=== PATIENT | male | born 1975 | race Caucasian/White ===

== ENCOUNTER 2019-12-28 18:40 | Emergency (ER) | payer SELFPAY ==
--- NOTE | 2019-12-28 19:19 | EDM.PDOC ---
ED HPI GENERAL MEDICAL PROBLEM - General Chief Complaint: Neuro Symptoms/Deficits Stated Complaint: slurred speech confusion Time Seen by Provider: 12/28/19 18:45 Source of Information: Reports: Patient History Limitations: Reports: No Limitations - History of Present Illness INITIAL COMMENTS - FREE TEXT/NARRATIVE: brought in by family , was driving and developed pain behind he right eye , headache and slurred speech , dizziness and felt nauseated, was driving a the time . Stopped driving and family who was with him brought him in , seems to remember most of what happened , no CORTEZ currently , no chest pain , no shortness of breath not aware he is hypertensive Onset: Today Duration: Hour(s): (1) Location: Reports: Head Quality: Reports: Ache Severity: Moderate - Related Data Allergies Allergy/AdvReac Type Severity Reaction Status Date / Time No Known Allergies Allergy Verified 12/28/19 19:07 Home Meds: Home Meds NK [No Known Home Meds] 12/28/19 [History] ED ROS GENERAL - Review of Systems Review Of Systems: See Below Constitutional: Reports: Malaise HEENT: Reports: Eye Pain Respiratory: Reports: No Symptoms Cardiovascular: Reports: No Symptoms Endocrine: Reports: No Symptoms Neurological: Reports: Confusion, Dizziness, Headache, Trouble Speaking. Denies : Change in Speech, Gait Disturbance ED EXAM, NEURO - Physical Exam Exam: See Below Exam Limited By: No Limitations General Appearance: Alert, WD/WN, No Apparent Distress Eye Exam: Bilateral Eye: EOMI Ears: Normal External Exam Nose: Normal Inspection Throat/Mouth: Normal Inspection Neck: Supple, Non-Tender Respiratory/Chest: No Respiratory Distress, Lungs Clear Cardiovascular: Normal Peripheral Pulses, Regular Rate, Rhythm GI/Abdominal: Soft, Non-Tender Neurological: Alert, Normal Mood/Affect, Normal Dorsiflexion, CN II-XII Intact, Oriented x 3 Extremities: Normal Range of Motion Psychiatric: Normal Affect, Normal Mood *Q Meaningful Use (ADM) - VTE *Q VTE Mechanical Contraindications *Q: Confused Consciousness VTE Pharmacological Contraindications *Q: Active Hemorrhage VTE Anticoagulation Contraindications: Med/TX Not Indicated/Need - VTE Risk Assess *Q Each Risk Factor Represents 1 Point: None Total Score 1 Point Risk Factors: 0 - Stroke *Q Aspirin Contraindications Stroke *Q: Other (Use Special Inst) Anticoagulation Contraindications Stroke *Q: Med/TX Not Indicated/Need Antithrombotic Contraindications Stroke *Q: Med/TX Not Indicated/Need Thrombolytic/Fibrinolytic Contraindications Stroke *Q: Med/TX Not Indicated/Need Statin Contraindications Stroke *Q: Med/TX Not Indicated/Need Rehabilitation Assessment Contraindication *Q: Med/tx not indicated/need - AMI *Q Aspirin Contraindications AMI *Q: Med/TX Not Indicated/Need Thrombolytic/Fibrinolytic Contraindications IV (AMI) *Q: Med/tx not indicated/ need Statin Contraindications AMI *Q: Med/TX Not Indicated/Need Course - Vital Signs Last Recorded V/S: Last Vital Signs Temp 36.6 C 12/28/19 18:40 Pulse 74 12/28/19 18:40 Resp 14 12/28/19 18:40 BP 202/121 H 12/28/19 18:40 Pulse Ox 98 12/28/19 18:40 - Orders/Labs/Meds Orders: Active Orders 24 hr Category Date Time Status Chest 2V [CR] Stat Exams 12/28/19 19:07 Ordered Head wo Cont [CT] Stat Exams 12/28/19 19:06 Ordered CBC WITH AUTO DIFF [HEME] Stat Lab 12/28/19 19:08 Ordered COMPREHENSIVE METABOLIC PN,CMP [CHEM] Stat Lab 12/28/19 19:08 Ordered - Re-Assessments/Exams Free Text/Narrative Re-Assessment/Exam: 12/28/19 19:[address] ordered , labs , chest Xray pt signed out to next provider Departure - Departure Time of Disposition: 17:20 Disposition: Home, Self-Care 01 Clinical Impression: Hypertension - Discharge Information *PRESCRIPTION DRUG MONITORING PROGRAM REVIEWED*: Not Applicable *COPY OF PRESCRIPTION DRUG MONITORING REPORT IN PATIENT CHRISTOPHER: Not Applicable Referrals: PCP,None [Primary Care Provider] - Sepsis Event Note - Evaluation Sepsis Screening Result: No Definite Risk - Focused Exam Vital Signs: Vital Signs Temp Pulse Resp BP Pulse Ox 12/28/19 18:40 36.6 C 74 14 202/121 H 98 Date Exam was Performed: 12/28/19 Time Exam was Performed: 19:14 - My Orders Last 24 Hours: My Active Orders 12/28/19 19:06 Head wo Cont [CT] Stat 12/28/19 19:07 Chest 2V [CR] Stat 12/28/19 19:08 CBC WITH AUTO DIFF [HEME] Stat COMPREHENSIVE METABOLIC PN,CMP [CHEM] Stat - Assessment/Plan Last 24 Hours: My Active Orders 12/28/19 19:06 Head wo Cont [CT] Stat 12/28/19 19:07 Chest 2V [CR] Stat 12/28/19 19:08 CBC WITH AUTO DIFF [HEME] Stat COMPREHENSIVE METABOLIC PN,CMP [CHEM] Stat
[2019-12-28] MEDS ORDERED: Sodium Chloride 0.9% 10 ML Syringe FLUSH PRN (19:21)
[2019-12-28] MEDS ORDERED: Enalaprilat 1.25 MG/ML SDV IVPUSH ONE (19:21)
[2019-12-28] MEDS ORDERED: Labetalol 20 MG/4 ML Syringe IVPUSH ONE (19:58)
--- NOTE | 2019-12-28 23:04 | ER ---
DATE SEEN: 12/28/2019 CHIEF COMPLAINT: Hypertension. 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 He seems to have improved upon arrival. He has no previous history of hypertension. CT scan that was done by Dr. Ham looks normal. EKG, CBC, and troponin were also negative. He did not have any symptoms of chest pain or shortness of breath. He did endorse being very tired and working long hours. SOCIAL HISTORY: He is a smoker, but does not use any drugs. MEDICATIONS: None. ALLERGIES: None. PHYSICAL EXAMINATION: VITAL SIGNS: When examined him, blood pressure initially was 189/114, but improved down to 160 systolic over 90s. ENT: Negative. CARDIOVASCULAR: Normal. CHEST: Clear. MENTAL STATUS: Alert. LABORATORY DATA: As mentioned above, his labs were negative including troponin and CBC. IMPRESSION: Hypertensive urgency. PLAN: I sent him home with lisinopril-hydrochlorothiazide 1 tablet a day. I recommended followup on Wednesday with his PCP. I gave him Vasotec 1.25 mg IV one time and labetalol 10 mg one time, and his blood pressure came down to 160 systolic. /[id number] 2018 [id number] SIMONE/GONZÁLEZ
--- NOTE | 2019-12-29 10:22 | CR ---
INDICATION: Hypertension. CHEST, TWO VIEWS: PA and lateral views of the chest were obtained 12/28/19 - no comparisons. Somewhat flattened diaphragm leaves, prominent AP diameter and hyperaeration and hyperaeration suggest COPD. Heart is normal in size and shape. The aorta is tortuous with calcification in the arch. An active infiltrate or effusion was not identified. There is some pleural thickening in the apices compatible with pleural fibrosis. IMPRESSION: 1. No acute process. 2. Probable COPD - correlate clinically. 3. ASD aorta. MTDD
== END 2019-12-28 20:42 | disposition home or self-care (01) ==
LOC: FB.ED 18:40
DX: I16.0 Hypertensive urgency (principal); F17.200 Nicotine dependence, unspecified, uncomplicated
CPT/HCPCS: 36415; 70450; 71046; 80053; 84484; 85025; 93005; 96374; 96375; 99284-25; J3490